=== PATIENT | female | born 1945 | race Caucasian/White ===

== ENCOUNTER → 2024-02-18 12:10 | Outpatient (REF) | payer OTHER, SELFPAY | LOC: WDC 12:10 | PROVIDERS: ATTENDING PHYSICIAN Obstetrics & Gynecology; FAMILY PHYSICIAN Family Medicine | DX: Z12.31 Encounter for screening mammogram for malignant neoplasm of breast (principal) | CPT/HCPCS: 77063; 77067 ==

== ENCOUNTER → 2024-11-08 13:58 | Outpatient (REF) | payer OTHER, SELFPAY ==
--- NOTE | 2024-10-19 14:07 | PN.DIAED02 ---
Referral
DSME Class Series Code: [id number]
Referred For: Diabetes Self-Management Training, Medical Nutrition Therapy, Self-Blood Glucose Monitoring, Long-Term Complication Instruction, Accute Complication Instruction, Continuous Glucose Monitoring, Medication management, Insulin
Instruction, Care Coordination, Disease Management
PHI Release Authorization Form Signed: Yes
Demographic
(1) Type 2 diabetes mellitus without complications
Status: Acute Code(s): E11.9 - Type 2 diabetes mellitus without complications
Patient's primary language-: Maltese
Education: High school/GED
Occupation: Retired
- Social
Primary Support Person: Self
Primary Care Takers: Self
Living Arrangements: Self & spouse, Family
- Learning Methods
Preferred Method: Reading
Barriers to Learning: None
Glycemic Control
- Blood Glucose Monitoring Assessment
Blood glucose monitoring at home: Yes
Monitor Brands: OneTouch
Frequency: 1x per day (recommended to increase checks to 2 or 3/day since starting insulin)
- Hypoglycemia Assessment
Patient carries glucose source: No
Patient experiences hypoglycemia: Yes (feels low but lowest was 84 mg/dL)
Treatment: juice
Time: Other (afternoon)
History of Hypoglycemia Unawareness: No
- Blood Glucose Monitoring Results
Source: self-report
- Hemoglobin A1c
Date: 09/03/24
A1C Percentage (%): 8.3
Medical History of Diabetes
Family Diabetes History: Sibling
Previous Diabetes Education: No
Previous visit with Dietitian: No
Complications/Comorbidity/Specialist: Diabetic Neuropathy, Hypertension (on medication but unaware of name and dosage), Hyperlipidemia (Takes a statin daily; unaware of name and dose)
Current Home Medication
- Insulin Management
Patient adjusts own insulin dosages: No (10 units of Lantus daily in the morning)
Patient has access to glucagon: No
- Insulin Types
Lantus
Insulin Injection Site: Rotates
Administration Type: SoloSTAR
Measures
- Anthropometrics
Height: 5 ft 6 in
Actual Weight: 200 lb
- Blood Pressure / Pulse
Blood pressure: 138/55
Pulse: 78
- Diabetes Management
Medical Management for Diabetes: Complete physical exam (02/28/2024), Dental exam (04/29/2024), Dilated eye exam (09/29/24), Foot exam (09/29/24)
Self-Care
- Tobacco Usage
Do you now, or have you ever smoked?: Never smoked
- Alcohol & Drugs Usage
Drinks Alcohol: No
- Meals & Dining
Meals & Dining: Patient skips meals: No, Food Intolerance / Allergy: No, Cultural / Islam Dietary Needs: No
Primary Food Agriculturist: Self
Primary Stenotype Operator: Self
- Physical Activity
Physical Limitation: No
Patient participates in physical Activity: Yes
Activity Types: walking (15 minutes 3 times per week)
- Patient-Self Assessment
Diabetes Knowledge: Good
Feelings About Diabetes: Acceptance
Importance of Health: Extremely
Stress Level: Medium
Diabetes Interferes With:: Nothing
Barriers to Diabetes Management: Nothing
Depression Survey Score: 0
- Diabetes Identification
Carries Diabetes Identification: No
Diabetes Identification Information Provided: Yes
Care Plan
- Education Needs
Patient Education Needs: Diabetes disease process, Chronic complications, Acute complications, Medication, Monitoring, Physical activity, Psychosocial Adjustment, Nutritional management, Goal setting & problem solving
Recommended Diabetes Training Program based on assessment: Outpatient Diabetes Education Program
- Plan of Care
Plan of Care:
Jayashree presented for her initial assessment for the October DSME program. Currently she takes Metformin 500 mg BID and Glimepiride 2 mg daily. Lantus 10 units was added in June, to help decrease her A1c. Jayashree checks her blood glucose once a
day at home with a [employer] Ver[employer] flex meter and I encouraged her to increase checks to 2 to 3/daily since she is on insulin. We also discussed the use of glucose sensors. We reviewed hypoglycemia recognition and treatment. Jayashree will reach out to
the office with any concerns prior to the course.
--- NOTE | 2024-10-19 14:29 | PN.DIAED04 ---
Education Record
- Education Record
Class Attended: Other (Initial DSME assessment)
DSME Class Series Code: [id number]
Instructor: Nurse Practitioner (CANDICE Frazier)
Pre-Program Knowledge: Demonstrates competency
Pre-Test Score (%): 80
Goals
- Goal 1
Being Active: Exercise 30 minutes-5 times per week
Goals To Be Evaluated: Exercise 30 mins-5x/week
- Goal 2
Healthy Eating: Make better food choices, Reduce portion sizes
Goals To Be Evaluated: Make better food choices. Reduce portion sizes
- Goal 3
Monitoring: Monitor more often
Goals To Be Evaluated: Monitor more often
--- NOTE | 2024-11-10 15:18 | PN.DIAED14 ---
This is to notify you that your patient with diabetes, PHAM HERRERA ( 1945), has enrolled in our diabetes self-management classes that are being held at [facility].
These classes will include an introduction to diabetes, diet, medication, exercise and prevention of complications. At the end of our class series, you will receive a report of your patient's participation and progress for your records.
Please contact me at the Diabetes Center, , if there is any particular information regarding your patient that might be helpful to me.
Sincerely,
Da HARVEY-KATHY,[facility]
--- NOTE | 2024-11-10 15:20 | PN.DIAED04 ---
Education Record
- Education Record
Class Attended: Class 1
DSME Class Series Code: [id number]
Instructor: Nurse Practitioner (CANDICE Frazier)
Class Curriculum:
Outpatient Diabetes Education Program:
Class 1 (120 minutes)
Describe the diabetes disease process and treatment options
Diabetes management
Develop personal strategies to promote health and behavior change
Integrate psychosocial adjustment for daily living
Monitor blood glucose and other parameters. Interpret and use the results for self-management decision making
Prevent, detect, and treat acute complications
Class Length (mins): 120
Post-Class 1 Test Score (%): 50
== END ==
LOC: DES 13:58
PROVIDERS: ATTENDING PHYSICIAN Family Medicine
DX: E11.65 Type 2 diabetes mellitus with hyperglycemia (principal)
CPT/HCPCS: 99078

== ENCOUNTER → 2024-11-15 10:19 | Outpatient (REF) | payer OTHER, SELFPAY ==
--- NOTE | 2024-11-16 15:48 | PN.DIAED04 ---
Education Record
- Education Record
Class Attended: Class 2
DSME Class Series Code: [id number]
Instructor: Registered Dietitian (Myriam Childress, RD, LDN, CDE)
Class Curriculum:
Outpatient Diabetes Education Program:
Class 2 (120 minutes)
Incorporate nutritional management into lifestyle
Understanding nutritional value
Understanding carbohydrate counting
Class Length (mins): 120
== END ==
LOC: DES 10:19
PROVIDERS: ATTENDING PHYSICIAN Family Medicine
DX: E11.65 Type 2 diabetes mellitus with hyperglycemia (principal)
CPT/HCPCS: 99078

== ENCOUNTER → 2024-11-22 08:28 | Outpatient (REF) | payer OTHER, SELFPAY ==
--- NOTE | 2024-11-23 10:12 | PN.DIAED04 ---
Education Record
- Education Record
Class Attended: Class 3
DSME Class Series Code: [id number]
Instructor: Registered Dietitian (Myriam Childress, RD, LDN, CDE)
Class Curriculum:
Outpatient Diabetes Education Program:
Class 3 (120 minutes)
Incorporate nutritional management into lifestyle
Class Length (mins): 120
Post-Class 2 & 3 Test Score (%): 100
== END ==
LOC: DES 08:28
PROVIDERS: ATTENDING PHYSICIAN Family Medicine
DX: E11.65 Type 2 diabetes mellitus with hyperglycemia (principal)
CPT/HCPCS: 99078

== ENCOUNTER → 2024-11-29 09:16 | Outpatient (REF) | payer OTHER, SELFPAY ==
--- NOTE | 2024-11-30 14:57 | PN.DIAED04 ---
Education Record
- Education Record
Class Attended: Class 4
DSME Class Series Code: [id number]
Instructor: Nurse Practitioner (Lidya Haines NP)
Class Curriculum:
Outpatient Diabetes Education Program:
Class 4 (120 minutes)
Develop personal strategies to promote health and behavior change
Incorporate physical activity into lifestyle
Utilize medications safety for maximum therapeutic effectiveness
Understand different medication/insulin mechanism of action
Preparing for travel
Class Length (mins): 120
Post-Class 4 Test Score (%): 93
== END ==
LOC: DES 09:16
PROVIDERS: ATTENDING PHYSICIAN Family Medicine
DX: E11.65 Type 2 diabetes mellitus with hyperglycemia (principal)
CPT/HCPCS: 99078

== ENCOUNTER → 2024-12-06 12:26 | Outpatient (REF) | payer OTHER, SELFPAY ==
--- NOTE | 2024-12-09 10:15 | PN.DIAED04 ---
Education Record
- Education Record
Class Attended: Class 5
DSME Class Series Code: [id number]
Instructor: Nurse Practitioner (CANDICE Frazier)
Class Curriculum:
Outpatient Diabetes Education Program:
Class 5 (120 minutes)
Prevent, detect, and treat acute complications
Prevent, detect, and treat chronic complications through risk reduction
Develop personal strategies to address psychosocial issues and concerns
Development of diabetes self-management support plan
Letter to physician with DSMS plan attached sent
Class Length (mins): 120
Post-Test Score (%): 90
Post-Program Assessment
- Post-Program Assessment
Actual Weight: 201 lb
Blood pressure: 154/72
Post-Program Depression Survey Score: 0
Reviewing Previous Goals?: Yes
Pre-Program Depression Survey Score: 0
- Goals 1 Evaluation
Goals To Be Evaluated: Exercise 30 mins-5x/week
- Goals 2 Evaluation
Goals To Be Evaluated: Make better food choices. Reduce portion sizes
- Goals 3 Evaluation
Goals To Be Evaluated: Monitor more often
--- NOTE | 2024-12-09 10:19 | PN.DIAED16 ---
This is to notify you that your patient with diabetes, PHAM HERRERA ( 1945), has attended the entire series of Diabetes Self-Management Education Classes.
Class 1 (120 minutes): Diabetes Overview - monitoring, stress/psychosocial adjustment, support, goal setting
Class 2 (120 minutes): Meal Planning - serving sizes, menu plans
Class 3 (120 minutes): Introduction to Carbohydrate Counting, Analyzing Food Labels
Class 4 (120 minutes): Medication, Exercise and Activity
Class 5 (120 minutes): Sick Day Management, Strategies to Reduce Complications, Problem Solving, Resources
The following behavioral goals were identified:
Exercise 30 mins-5x/week
Make better food choices
Reduce portion sizes
Monitor more often
A follow-up call will be made within three to six months to evaluate attainment of these goals and to check post-program Hemoglobin A1c and overall progress. All class participants are encouraged to contact me if I can be any further assistance in
learning how to manage their diabetes.
Sincerely,
Da HARVEY-, [facility]
== END ==
LOC: DES 12:26
PROVIDERS: ATTENDING PHYSICIAN Family Medicine
DX: E11.65 Type 2 diabetes mellitus with hyperglycemia (principal)
CPT/HCPCS: 99078

== ENCOUNTER → 2024-12-09 09:10 | Outpatient (REF) | payer OTHER, SELFPAY | LOC: RCS 09:10 | PROVIDERS: ATTENDING PHYSICIAN Family Medicine | DX: R01.1 Cardiac murmur, unspecified (principal) | CPT/HCPCS: 93306 ==

== ENCOUNTER → 2025-05-21 09:22 | Outpatient (REF) | payer OTHER, SELFPAY | LOC: WDC 09:22 | PROVIDERS: ATTENDING PHYSICIAN Family Medicine | DX: Z12.31 Encounter for screening mammogram for malignant neoplasm of breast (principal) | CPT/HCPCS: 77063; 77067 ==